=== PATIENT | male | born 1945 | race African-American/Black ===

== ENCOUNTER 2017-03-15 14:05 | Inpatient (IN) | payer MEDICARE, BC ==
[~2017-03-15] VITALS: Ht 177.8 cm; Wt 92.5 kg
[2017-03-15 15:44] VITALS: BP 148/88
[2017-03-15] MEDS ORDERED: DIPHENHYDRAMINE 25MG CAPSULE PO PRN (16:00)
[2017-03-15] MEDS ORDERED: BISACODYL 10MG SUPP PR PRN (16:00)
[2017-03-15] MEDS ORDERED: ONDANSETRON HCL 4MG TABLET PO PRN (16:00)
[2017-03-15] MEDS ORDERED: LORAZEPAM 1MG TABLET PO PRN (16:00)
[2017-03-15] MEDS ORDERED: DEXTROSE 50% WATER 50ML SYRINGE IV PRN (16:00)
[2017-03-15] MEDS ORDERED: NON FORMULARY PATIENT HOME MED EA XX SCH ×2 (16:00)
[2017-03-15 16:23] VITALS: BP 148/88
[2017-03-15] MEDS ORDERED: TRAMADOL 50MG TABLET PO PRN (16:59)
[2017-03-15] MEDS ORDERED: MAGNESIUM OXIDE 400MG TABLET PO SCH (17:00)
[2017-03-15] MEDS: INSULIN LISPRO 100 UNITS/ML SUBCUT SCH ×2 (17:00→21:00)
[2017-03-15] MEDS: BLOOD SUGAR DIAGNOSTIC STRIP TEST SCH ×2 (17:35→21:27)
[2017-03-15] MEDS: TAMSULOSIN HCL 0.4MG SR CAPSULE PO SCH (17:46)
[2017-03-15] MEDS: LANTHANUM CARBONATE 500MG CHEW TABLET PO SCH (18:32)
[2017-03-15 20:00] VITALS: BP 143/65
[2017-03-15] MEDS: LISINOPRIL 20MG TABLET PO SCH (21:00)
[2017-03-15] MEDS: NIFEDIPINE XL 60MG TAB PO SCH (21:00)
[2017-03-15] MEDS: IPRATROPIUM/ALBUTEROL 0.5-3(2.5)MG/3ML NEB HHN SCH (21:05)
[2017-03-15] MEDS: PHENYTOIN 100 MG/4 ML UDC PO SCH (21:25)
[2017-03-15] MEDS: FUROSEMIDE 80MG TABLET PO SCH (21:26)
[2017-03-15] MEDS: MIRTAZAPINE 15MG TABLET PO SCH (21:26)
[2017-03-15] MEDS: HYDRALAZINE HCL 100MG TABLET PO SCH (21:26)
[2017-03-15] MEDS: EPOETIN ALFA 4000UNITS/ML VIAL SUBCUT SCH (21:29)
[2017-03-15] MEDS: NITROGLYCERIN OINT 1GM/INCH UDPKT TD SCH (21:29)
[2017-03-16] MEDS: IPRATROPIUM/ALBUTEROL 0.5-3(2.5)MG/3ML NEB HHN SCH ×7 (00:21→20:23)
[2017-03-16 06:50] LABS: EOSINOPHILS % 4.3 % (0.0-5.0); HEMATOCRIT. 30.1 % (42.0-52.0); HEMOGLOBIN. 9.6 g/dL (14.0-18.0); LYMPHOCYTES % 15.7 % (20.0-50.0); MEAN CORPUSCULAR HEMOGLOBIN 29.3 pg (28.0-32.0); MEAN CORPUSCULAR VOLUME 91.6 fL (80.0-94.0); MEAN PLATELET VOLUME 7.3 fl (7.4-10.4); MONOCYTES % 6.2 % (2.0-8.0); NEUTROPHILS % 72.8 % (40.0-76.0); PLATELET 238 x1000/uL (130-400); RED BLOOD CELL COUNT 3.28 mill/uL (4.7-6.1); RED CELL DISTRIBUTION WIDTH 17.5 % (11.6-14.6)
[2017-03-16] MEDS: BLOOD SUGAR DIAGNOSTIC STRIP TEST SCH ×4 (06:59→21:17)
[2017-03-16] MEDS: LEVOTHYROXINE SODIUM 125MCG TABLET PO SCH (06:59)
[2017-03-16] MEDS: PHENYTOIN 100 MG/4 ML UDC PO SCH ×3 (06:59→22:19)
[2017-03-16] MEDS: INSULIN LISPRO 100 UNITS/ML SUBCUT SCH ×4 (07:04→22:29)
[2017-03-16] MEDS: HYDRALAZINE HCL 100MG TABLET PO SCH ×3 (07:04→22:19)
[2017-03-16] MEDS: NITROGLYCERIN OINT 1GM/INCH UDPKT TD SCH ×3 (07:10→22:20)
[2017-03-16 07:34] LABS: PREALBUMIN 20.6 mg/dL (20.0-40.0)
[2017-03-16 07:49] VITALS: BP 173/79
[2017-03-16] MEDS: NIFEDIPINE XL 60MG TAB PO SCH ×2 (08:48→21:04)
[2017-03-16] MEDS: FUROSEMIDE 80MG TABLET PO SCH ×2 (08:48→21:04)
[2017-03-16] MEDS: TAMSULOSIN HCL 0.4MG SR CAPSULE PO SCH ×2 (08:48→17:27)
[2017-03-16] MEDS: LANTHANUM CARBONATE 500MG CHEW TABLET PO SCH ×3 (08:48→17:27)
[2017-03-16] MEDS: VITAMIN B / W-C 1 TAB PO SCH (08:48)
[2017-03-16] MEDS: POTASSIUM CHLORIDE 20MEQ/PACKET PO SCH (08:49)
[2017-03-16] MEDS: SPIRONOLACTONE 25MG TABLET PO SCH (08:49)
[2017-03-16] MEDS: LINAGLIPTIN 5MG TABLET PO SCH (08:49)
[2017-03-16] MEDS: ISOSORBIDE MONONITRATE 30MG TABLET SR 24HR PO SCH (08:50)
[2017-03-16] MEDS ORDERED: MAGNESIUM OXIDE 400MG TABLET PO SCH (09:00)
[2017-03-16] MEDS: LISINOPRIL 20MG TABLET PO SCH ×2 (09:00→21:05)
[2017-03-16] MEDS: ACETAMINOPHEN 325MG TABLET PO PRN (10:34)
[2017-03-16] MEDS: LACTULOSE 20G/30ML UDC PO SCH ×3 (16:13→21:00)
[2017-03-16] MEDS: DOCUSATE SODIUM 100MG CAPSULE PO SCH (17:27)
[2017-03-16] MEDS ORDERED: POTASSIUM CHLORIDE 20MEQ TABLET SR PO NR (18:41)
[2017-03-16 20:00] VITALS: BP 175/79
[2017-03-16] MEDS: POLYETHYLENE GLYCOL 3350 (17GM) 1 DOSE PACK PO SCH (21:00)
[2017-03-16] MEDS: MIRTAZAPINE 15MG TABLET PO SCH (21:04)
[2017-03-17] MEDS: IPRATROPIUM/ALBUTEROL 0.5-3(2.5)MG/3ML NEB HHN SCH ×7 (00:20→21:27)
[2017-03-17] MEDS: PHENYTOIN 100 MG/4 ML UDC PO SCH ×3 (06:12→22:13)
[2017-03-17] MEDS: BLOOD SUGAR DIAGNOSTIC STRIP TEST SCH ×4 (06:12→20:48)
[2017-03-17] MEDS: HYDRALAZINE HCL 100MG TABLET PO SCH ×3 (06:12→22:24)
[2017-03-17] MEDS: NITROGLYCERIN OINT 1GM/INCH UDPKT TD SCH ×3 (06:12→22:24)
[2017-03-17] MEDS: LEVOTHYROXINE SODIUM 125MCG TABLET PO SCH (06:13)
[2017-03-17 06:22] LABS: BASOPHILS % 0.8 % (0.0-2.0); EOSINOPHILS % 5.1 % (0.0-5.0); HEMATOCRIT. 29.8 % (42.0-52.0); HEMOGLOBIN. 9.9 g/dL (14.0-18.0); LYMPHOCYTES % 16.4 % (20.0-50.0); MEAN CORPUSCULAR HEMOGLOBIN 30.5 pg (28.0-32.0); MEAN CORPUSCULAR VOLUME 91.6 fL (80.0-94.0); MEAN PLATELET VOLUME 6.9 fl (7.4-10.4); MONOCYTES % 7.8 % (2.0-8.0); NEUTROPHILS % 69.9 % (40.0-76.0); PLATELET 247 x1000/uL (130-400); RED BLOOD CELL COUNT 3.26 mill/uL (4.7-6.1); RED CELL DISTRIBUTION WIDTH 17.9 % (11.6-14.6)
[2017-03-17] MEDS: INSULIN LISPRO 100 UNITS/ML SUBCUT SCH ×4 (06:28→22:21)
[2017-03-17 07:21] LABS: CHLORIDE 97 mEq/L (98-107)
[2017-03-17 07:47] LABS: FOLIC ACID (FOLATE) SERUM 17.8 ng/mL (>5.38)
[2017-03-17 07:55] LABS: CARBON DIOXIDE 28 mEq/L (21-32); HDL CHOLESTEROL 38 mg/dL (40-59); LDL CHOLESTEROL 72 mg/dL (5-100); PHOSPHORUS 2.3 mg/dL (2.5-4.9); TOTAL IRON BINDING CAPACITY 122 ug/dL (250-450)
[2017-03-17 08:00] VITALS: BP 187/129
[2017-03-17] MEDS: LACTULOSE 20G/30ML UDC PO SCH ×2 (09:00→12:45)
[2017-03-17 09:30] VITALS: BP_SYST 183; BP_SYST 193; BP_DIAS 77; BP_DIAS 86
[2017-03-17] MEDS ORDERED: POTASSIUM CHLORIDE 20MEQ/PACKET PO NR (09:35)
[2017-03-17] MEDS: DOCUSATE SODIUM 100MG CAPSULE PO SCH ×2 (09:55→18:27)
[2017-03-17] MEDS: MAGNESIUM OXIDE 400MG TABLET PO SCH ×2 (09:55→18:27)
[2017-03-17] MEDS: TAMSULOSIN HCL 0.4MG SR CAPSULE PO SCH ×2 (09:55→18:27)
[2017-03-17] MEDS: LISINOPRIL 20MG TABLET PO SCH ×2 (09:55→20:47)
[2017-03-17] MEDS: LINAGLIPTIN 5MG TABLET PO SCH (09:55)
[2017-03-17] MEDS: VITAMIN B / W-C 1 TAB PO SCH (09:56)
[2017-03-17] MEDS: NIFEDIPINE XL 60MG TAB PO SCH ×2 (09:56→20:47)
[2017-03-17] MEDS: SPIRONOLACTONE 25MG TABLET PO SCH (09:56)
[2017-03-17] MEDS: FUROSEMIDE 80MG TABLET PO SCH ×2 (09:56→20:48)
[2017-03-17] MEDS: POTASSIUM CHLORIDE 20MEQ/PACKET PO SCH (09:56)
[2017-03-17] MEDS: ISOSORBIDE MONONITRATE 30MG TABLET SR 24HR PO SCH (09:56)
[2017-03-17] MEDS: ACETAMINOPHEN 325MG TABLET PO PRN (09:59)
[2017-03-17 11:10] LABS: PROSTRATE SPECIFIC AG TOTAL 0.42 ng/mL (0.0-4.0)
[2017-03-17 12:30] VITALS: BP 148/70
[2017-03-17 20:00] VITALS: BP 202/83
[2017-03-17] MEDS: EPOETIN ALFA 4000UNITS/ML VIAL SUBCUT SCH (20:47)
[2017-03-17] MEDS: POLYETHYLENE GLYCOL 3350 (17GM) 1 DOSE PACK PO SCH (20:48)
[2017-03-17] MEDS: MIRTAZAPINE 15MG TABLET PO SCH (20:48)
[2017-03-18] MEDS: IPRATROPIUM/ALBUTEROL 0.5-3(2.5)MG/3ML NEB HHN SCH ×6 (00:32→20:00)
[2017-03-18] MEDS: BLOOD SUGAR DIAGNOSTIC STRIP TEST SCH ×4 (06:38→20:51)
[2017-03-18] MEDS: LEVOTHYROXINE SODIUM 125MCG TABLET PO SCH (06:38)
[2017-03-18] MEDS: PHENYTOIN 100 MG/4 ML UDC PO SCH (06:38)
[2017-03-18] MEDS: NITROGLYCERIN OINT 1GM/INCH UDPKT TD SCH ×3 (06:39→20:53)
[2017-03-18] MEDS: HYDRALAZINE HCL 100MG TABLET PO SCH ×3 (06:39→21:53)
[2017-03-18] MEDS: INSULIN LISPRO 100 UNITS/ML SUBCUT SCH ×4 (06:39→20:57)
[2017-03-18 08:00] VITALS: BP 189/78
[2017-03-18] MEDS: SPIRONOLACTONE 25MG TABLET PO SCH (09:52)
[2017-03-18] MEDS: TAMSULOSIN HCL 0.4MG SR CAPSULE PO SCH ×2 (09:52→17:33)
[2017-03-18] MEDS: FUROSEMIDE 80MG TABLET PO SCH ×2 (09:52→20:51)
[2017-03-18] MEDS: LINAGLIPTIN 5MG TABLET PO SCH (09:52)
[2017-03-18] MEDS: VITAMIN B / W-C 1 TAB PO SCH (09:52)
[2017-03-18] MEDS: DOCUSATE SODIUM 100MG CAPSULE PO SCH ×2 (09:53→17:00)
[2017-03-18] MEDS: MAGNESIUM OXIDE 400MG TABLET PO SCH ×2 (09:53→17:33)
[2017-03-18] MEDS: POTASSIUM CHLORIDE 20MEQ/PACKET PO SCH (09:53)
[2017-03-18] MEDS: NIFEDIPINE XL 60MG TAB PO SCH ×2 (09:53→20:50)
[2017-03-18] MEDS: ISOSORBIDE MONONITRATE 30MG TABLET SR 24HR PO SCH (09:53)
[2017-03-18] MEDS: LISINOPRIL 20MG TABLET PO SCH ×2 (09:53→20:51)
[2017-03-18] MEDS: ACETAMINOPHEN 325MG TABLET PO PRN ×2 (09:54→23:21)
[2017-03-18] MEDS ORDERED: LEVETIRACETAM 250MG TABLET PO SCH (10:30)
[2017-03-18 11:30] LABS: AMMONIA 38 uMol/L (<32)
[2017-03-18 11:47] LABS: T4 FREE 1.38 ng/dL (0.76-1.46)
[2017-03-18 12:00] VITALS: BP 103/67
[2017-03-18 20:00] VITALS: BP 174/88
[2017-03-18] MEDS: LEVETIRACETAM 250MG TABLET PO SCH (20:49)
[2017-03-18] MEDS: MIRTAZAPINE 15MG TABLET PO SCH (20:50)
[2017-03-18] MEDS: POLYETHYLENE GLYCOL 3350 (17GM) 1 DOSE PACK PO SCH (20:51)
[2017-03-19] MEDS: IPRATROPIUM/ALBUTEROL 0.5-3(2.5)MG/3ML NEB HHN SCH ×5 (00:06→19:42)
[2017-03-19] MEDS: HYDRALAZINE HCL 100MG TABLET PO SCH ×3 (05:52→22:00)
[2017-03-19] MEDS: LEVOTHYROXINE SODIUM 125MCG TABLET PO SCH (05:52)
[2017-03-19] MEDS: NITROGLYCERIN OINT 1GM/INCH UDPKT TD SCH ×3 (05:53→22:22)
[2017-03-19] MEDS: BLOOD SUGAR DIAGNOSTIC STRIP TEST SCH ×4 (05:53→21:00)
[2017-03-19] MEDS: INSULIN LISPRO 100 UNITS/ML SUBCUT SCH ×5 (06:26→22:29)
[2017-03-19 08:00] VITALS: BP 166/77
[2017-03-19] MEDS: POTASSIUM CHLORIDE 20MEQ/PACKET PO SCH (09:22)
[2017-03-19] MEDS: VITAMIN B / W-C 1 TAB PO SCH (09:22)
[2017-03-19] MEDS: NIFEDIPINE XL 60MG TAB PO SCH ×2 (09:23→21:00)
[2017-03-19] MEDS: FUROSEMIDE 80MG TABLET PO SCH ×2 (09:23→22:21)
[2017-03-19] MEDS: TAMSULOSIN HCL 0.4MG SR CAPSULE PO SCH ×2 (09:23→18:03)
[2017-03-19] MEDS: DOCUSATE SODIUM 100MG CAPSULE PO SCH ×2 (09:23→18:02)
[2017-03-19] MEDS: ISOSORBIDE MONONITRATE 30MG TABLET SR 24HR PO SCH (09:23)
[2017-03-19] MEDS: LEVETIRACETAM 250MG TABLET PO SCH ×2 (09:23→22:21)
[2017-03-19] MEDS: LISINOPRIL 20MG TABLET PO SCH ×2 (09:24→21:00)
[2017-03-19] MEDS: SPIRONOLACTONE 25MG TABLET PO SCH (09:24)
[2017-03-19] MEDS: LINAGLIPTIN 5MG TABLET PO SCH (09:24)
[2017-03-19] MEDS: MAGNESIUM OXIDE 400MG TABLET PO SCH ×2 (09:24→18:02)
[2017-03-19 09:25] LABS: BASOPHILS % 1.3 % (0.0-2.0); EOSINOPHILS % 5.4 % (0.0-5.0); HEMATOCRIT. 29.2 % (42.0-52.0); HEMOGLOBIN. 9.5 g/dL (14.0-18.0); LYMPHOCYTES % 17.2 % (20.0-50.0); MEAN CORPUSCULAR HEMOGLOBIN 29.6 pg (28.0-32.0); MONOCYTES % 8.3 % (2.0-8.0); NEUTROPHILS % 67.8 % (40.0-76.0); PLATELET 217 x1000/uL (130-400); RED BLOOD CELL COUNT 3.21 mill/uL (4.7-6.1); RED CELL DISTRIBUTION WIDTH 17.7 % (11.6-14.6)
[2017-03-19] MEDS: ACETAMINOPHEN 500MG TABLET PO SCH ×3 (13:39→23:46)
[2017-03-19 20:00] VITALS: BP_SYST 108; BP_SYST 109; BP_DIAS 66
[2017-03-19] MEDS: POLYETHYLENE GLYCOL 3350 (17GM) 1 DOSE PACK PO SCH (21:00)
[2017-03-19] MEDS: MIRTAZAPINE 15MG TABLET PO SCH (22:21)
[2017-03-19] MEDS: ACETAMINOPHEN 325MG TABLET PO PRN (23:28)
[2017-03-20] MEDS: IPRATROPIUM/ALBUTEROL 0.5-3(2.5)MG/3ML NEB HHN SCH ×6 (00:14→20:18)
[2017-03-20] MEDS: ACETAMINOPHEN 500MG TABLET PO SCH ×4 (06:00→22:57)
[2017-03-20] MEDS: HYDRALAZINE HCL 100MG TABLET PO SCH ×3 (06:45→22:58)
[2017-03-20] MEDS: NITROGLYCERIN OINT 1GM/INCH UDPKT TD SCH ×3 (06:46→23:00)
[2017-03-20] MEDS: BLOOD SUGAR DIAGNOSTIC STRIP TEST SCH ×4 (06:46→21:00)
[2017-03-20] MEDS: LEVOTHYROXINE SODIUM 125MCG TABLET PO SCH (06:52)
[2017-03-20] MEDS: INSULIN LISPRO 100 UNITS/ML SUBCUT SCH ×2 (06:56→13:00)
[2017-03-20 08:00] VITALS: BP 184/75
[2017-03-20] MEDS: POTASSIUM CHLORIDE 20MEQ/PACKET PO SCH (09:21)
[2017-03-20] MEDS: DOCUSATE SODIUM 100MG CAPSULE PO SCH ×2 (09:21→18:06)
[2017-03-20] MEDS: NIFEDIPINE XL 60MG TAB PO SCH ×2 (09:22→22:57)
[2017-03-20] MEDS: LINAGLIPTIN 5MG TABLET PO SCH (09:22)
[2017-03-20] MEDS: SPIRONOLACTONE 25MG TABLET PO SCH (09:22)
[2017-03-20] MEDS: LISINOPRIL 20MG TABLET PO SCH ×2 (09:22→21:00)
[2017-03-20] MEDS: ISOSORBIDE MONONITRATE 30MG TABLET SR 24HR PO SCH (09:23)
[2017-03-20] MEDS: LEVETIRACETAM 250MG TABLET PO SCH ×2 (09:23→22:58)
[2017-03-20] MEDS: MAGNESIUM OXIDE 400MG TABLET PO SCH ×2 (09:23→18:05)
[2017-03-20] MEDS: TAMSULOSIN HCL 0.4MG SR CAPSULE PO SCH ×2 (09:23→18:05)
[2017-03-20] MEDS: FUROSEMIDE 80MG TABLET PO SCH ×2 (09:23→22:59)
[2017-03-20] MEDS: VITAMIN B / W-C 1 TAB PO SCH (09:23)
[2017-03-20] MEDS ORDERED: GLUCAGON,HUMAN RECOMBINANT 1MG/VIAL IM SCH (10:15)
[2017-03-20] MEDS: ASCORBIC ACID 250 MG TABLET PO SCH (18:06)
[2017-03-20 20:00] VITALS: BP_SYST 120; BP_SYST 136; BP_DIAS 65; BP_DIAS 67
[2017-03-20] MEDS: POLYETHYLENE GLYCOL 3350 (17GM) 1 DOSE PACK PO SCH (21:00)
[2017-03-20] MEDS: MIRTAZAPINE 15MG TABLET PO SCH (22:58)
[2017-03-20] MEDS: EPOETIN ALFA 4000UNITS/ML VIAL SUBCUT SCH (22:59)
[2017-03-21] MEDS: IPRATROPIUM/ALBUTEROL 0.5-3(2.5)MG/3ML NEB HHN SCH ×6 (00:22→21:35)
[2017-03-21] MEDS: LEVOTHYROXINE SODIUM 125MCG TABLET PO SCH (05:59)
[2017-03-21] MEDS: ACETAMINOPHEN 500MG TABLET PO SCH ×3 (06:00→17:08)
[2017-03-21] MEDS: HYDRALAZINE HCL 100MG TABLET PO SCH ×3 (06:00→22:00)
[2017-03-21] MEDS: NITROGLYCERIN OINT 1GM/INCH UDPKT TD SCH ×3 (06:00→23:08)
[2017-03-21] MEDS: BLOOD SUGAR DIAGNOSTIC STRIP TEST SCH ×5 (06:00→21:42)
[2017-03-21 08:00] VITALS: BP 166/70
[2017-03-21] MEDS ORDERED: ZINC SULFATE 220 MG ( 50 ) CAPSULE PO SCH (09:00)
[2017-03-21 09:06] LABS: 25-HYDROXY VITAMIN D3 24 ng/mL (.)
[2017-03-21] MEDS: POTASSIUM CHLORIDE 20MEQ/PACKET PO SCH (10:05)
[2017-03-21] MEDS: MAGNESIUM OXIDE 400MG TABLET PO SCH ×2 (10:06→17:08)
[2017-03-21] MEDS: ZINC SULFATE 220 MG ( 50 ) CAPSULE PO SCH (10:06)
[2017-03-21] MEDS: FOLIC ACID/VITAMIN B COMP W-C TABLET PO SCH (10:06)
[2017-03-21] MEDS: FUROSEMIDE 80MG TABLET PO SCH ×2 (10:06→21:41)
[2017-03-21] MEDS: TAMSULOSIN HCL 0.4MG SR CAPSULE PO SCH ×2 (10:07→17:08)
[2017-03-21] MEDS: VITAMIN B / W-C 1 TAB PO SCH (10:07)
[2017-03-21] MEDS: LEVETIRACETAM 250MG TABLET PO SCH ×2 (10:07→21:40)
[2017-03-21] MEDS: ASCORBIC ACID 250 MG TABLET PO SCH ×2 (10:07→17:08)
[2017-03-21] MEDS: NIFEDIPINE XL 60MG TAB PO SCH ×2 (10:08→21:41)
[2017-03-21] MEDS: SPIRONOLACTONE 25MG TABLET PO SCH (10:08)
[2017-03-21] MEDS: LISINOPRIL 20MG TABLET PO SCH ×2 (10:08→21:41)
[2017-03-21] MEDS: DOCUSATE SODIUM 100MG CAPSULE PO SCH ×2 (10:09→17:08)
[2017-03-21] MEDS: ISOSORBIDE MONONITRATE 30MG TABLET SR 24HR PO SCH (10:09)
[2017-03-21] MEDS ORDERED: ERGOCALCIFEROL 50000UNITS CAPSULE PO SCH (15:00)
[2017-03-21 20:00] VITALS: BP 155/76
[2017-03-21] MEDS: POLYETHYLENE GLYCOL 3350 (17GM) 1 DOSE PACK PO SCH (21:00)
[2017-03-21] MEDS: MIRTAZAPINE 15MG TABLET PO SCH (21:41)
[2017-03-22] MEDS: IPRATROPIUM/ALBUTEROL 0.5-3(2.5)MG/3ML NEB HHN SCH ×6 (01:16→19:57)
[2017-03-22] MEDS: HYDRALAZINE HCL 100MG TABLET PO SCH ×3 (06:28→23:29)
[2017-03-22] MEDS: BLOOD SUGAR DIAGNOSTIC STRIP TEST SCH ×4 (06:28→21:00)
[2017-03-22] MEDS: NITROGLYCERIN OINT 1GM/INCH UDPKT TD SCH ×3 (06:28→23:28)
[2017-03-22] MEDS: LEVOTHYROXINE SODIUM 125MCG TABLET PO SCH (06:28)
[2017-03-22] MEDS: ACETAMINOPHEN 500MG TABLET PO SCH ×5 (06:28→23:28)
[2017-03-22 08:00] VITALS: BP 141/70
[2017-03-22] MEDS: TAMSULOSIN HCL 0.4MG SR CAPSULE PO SCH ×2 (09:57→17:18)
[2017-03-22] MEDS: LISINOPRIL 20MG TABLET PO SCH ×2 (09:57→22:27)
[2017-03-22] MEDS: FUROSEMIDE 80MG TABLET PO SCH ×2 (09:57→22:27)
[2017-03-22] MEDS: DOCUSATE SODIUM 100MG CAPSULE PO SCH ×2 (09:57→17:18)
[2017-03-22] MEDS: FOLIC ACID/VITAMIN B COMP W-C TABLET PO SCH (09:57)
[2017-03-22] MEDS: LEVETIRACETAM 250MG TABLET PO SCH ×2 (09:57→22:27)
[2017-03-22] MEDS: MAGNESIUM OXIDE 400MG TABLET PO SCH ×2 (09:57→17:18)
[2017-03-22] MEDS: ZINC SULFATE 220 MG ( 50 ) CAPSULE PO SCH (09:57)
[2017-03-22] MEDS: VITAMIN B / W-C 1 TAB PO SCH (09:57)
[2017-03-22] MEDS: SPIRONOLACTONE 25MG TABLET PO SCH (09:57)
[2017-03-22] MEDS: ASCORBIC ACID 250 MG TABLET PO SCH ×2 (09:57→17:18)
[2017-03-22] MEDS: NIFEDIPINE XL 60MG TAB PO SCH ×2 (09:58→23:29)
[2017-03-22] MEDS: ISOSORBIDE MONONITRATE 30MG TABLET SR 24HR PO SCH (09:58)
[2017-03-22] MEDS: POTASSIUM CHLORIDE 20MEQ/PACKET PO SCH (09:58)
[2017-03-22 12:07] LABS: BASOPHILS % 0.9 % (0.0-2.0); EOSINOPHILS % 3.9 % (0.0-5.0); HEMATOCRIT. 31.5 % (42.0-52.0); HEMOGLOBIN. 10.2 g/dL (14.0-18.0); LYMPHOCYTES % 15.5 % (20.0-50.0); MEAN CORPUSCULAR HEMOGLOBIN 30.1 pg (28.0-32.0); MEAN CORPUSCULAR VOLUME 92.6 fL (80.0-94.0); MEAN PLATELET VOLUME 7.2 fl (7.4-10.4); MONOCYTES % 6.8 % (2.0-8.0); NEUTROPHILS % 72.9 % (40.0-76.0); PLATELET 255 x1000/uL (130-400); RED CELL DISTRIBUTION WIDTH 18.4 % (11.6-14.6)
[2017-03-22 12:20] VITALS: BP 106/58
[2017-03-22] MEDS ORDERED: POTASSIUM CHLORIDE 20MEQ/PACKET PO NR (19:00)
[2017-03-22 20:00] VITALS: BP 124/67
[2017-03-22] MEDS: POLYETHYLENE GLYCOL 3350 (17GM) 1 DOSE PACK PO SCH (21:00)
[2017-03-22] MEDS: MIRTAZAPINE 15MG TABLET PO SCH (22:27)
[2017-03-23] MEDS: IPRATROPIUM/ALBUTEROL 0.5-3(2.5)MG/3ML NEB HHN SCH ×5 (00:13→20:55)
[2017-03-23] MEDS: LEVOTHYROXINE SODIUM 125MCG TABLET PO SCH (06:26)
[2017-03-23] MEDS: ACETAMINOPHEN 500MG TABLET PO SCH ×4 (06:26→22:37)
[2017-03-23] MEDS: NITROGLYCERIN OINT 1GM/INCH UDPKT TD SCH ×3 (06:27→22:36)
[2017-03-23] MEDS: BLOOD SUGAR DIAGNOSTIC STRIP TEST SCH ×4 (06:27→20:55)
[2017-03-23] MEDS: HYDRALAZINE HCL 100MG TABLET PO SCH ×3 (06:27→22:37)
[2017-03-23 08:00] VITALS: BP 148/70
[2017-03-23] MEDS: POTASSIUM CHLORIDE 20MEQ/PACKET PO SCH (09:23)
[2017-03-23] MEDS: LISINOPRIL 20MG TABLET PO SCH ×2 (09:24→22:37)
[2017-03-23] MEDS: LEVETIRACETAM 250MG TABLET PO SCH ×2 (09:24→22:37)
[2017-03-23] MEDS: FOLIC ACID/VITAMIN B COMP W-C TABLET PO SCH (09:24)
[2017-03-23] MEDS: VITAMIN B / W-C 1 TAB PO SCH (09:24)
[2017-03-23] MEDS: DOCUSATE SODIUM 100MG CAPSULE PO SCH ×2 (09:24→16:52)
[2017-03-23] MEDS: ZINC SULFATE 220 MG ( 50 ) CAPSULE PO SCH (09:25)
[2017-03-23] MEDS: SPIRONOLACTONE 25MG TABLET PO SCH (09:25)
[2017-03-23] MEDS: NIFEDIPINE XL 60MG TAB PO SCH ×3 (09:25→22:59)
[2017-03-23] MEDS: ASCORBIC ACID 250 MG TABLET PO SCH ×2 (09:25→16:52)
[2017-03-23] MEDS: MAGNESIUM OXIDE 400MG TABLET PO SCH ×2 (09:25→16:52)
[2017-03-23] MEDS: TAMSULOSIN HCL 0.4MG SR CAPSULE PO SCH ×2 (09:25→16:52)
[2017-03-23] MEDS: FUROSEMIDE 80MG TABLET PO SCH ×2 (09:26→22:37)
[2017-03-23] MEDS: ISOSORBIDE MONONITRATE 30MG TABLET SR 24HR PO SCH (09:26)
[2017-03-23 20:01] VITALS: BP 133/79
[2017-03-23] MEDS: POLYETHYLENE GLYCOL 3350 (17GM) 1 DOSE PACK PO SCH (22:36)
[2017-03-23] MEDS: MIRTAZAPINE 15MG TABLET PO SCH (22:37)
[2017-03-24] MEDS: IPRATROPIUM/ALBUTEROL 0.5-3(2.5)MG/3ML NEB HHN SCH ×6 (00:47→20:50)
[2017-03-24] MEDS: BLOOD SUGAR DIAGNOSTIC STRIP TEST SCH ×4 (05:52→21:17)
[2017-03-24] MEDS: LEVOTHYROXINE SODIUM 125MCG TABLET PO SCH (06:52)
[2017-03-24] MEDS: ACETAMINOPHEN 500MG TABLET PO SCH ×4 (06:53→23:20)
[2017-03-24] MEDS: HYDRALAZINE HCL 100MG TABLET PO SCH ×3 (06:53→21:17)
[2017-03-24] MEDS: CLONIDINE 0.1MG TABLET PO PRN (06:58)
[2017-03-24] MEDS: NITROGLYCERIN OINT 1GM/INCH UDPKT TD SCH ×3 (07:03→21:17)
[2017-03-24 07:28] VITALS: BP 186/86
[2017-03-24 08:00] VITALS: BP 163/72
[2017-03-24] MEDS: DOCUSATE SODIUM 100MG CAPSULE PO SCH ×2 (09:00→17:00)
[2017-03-24] MEDS: SPIRONOLACTONE 25MG TABLET PO SCH (09:18)
[2017-03-24] MEDS: NIFEDIPINE XL 60MG TAB PO SCH ×2 (09:18→21:17)
[2017-03-24] MEDS: ISOSORBIDE MONONITRATE 30MG TABLET SR 24HR PO SCH (09:19)
[2017-03-24] MEDS: ASCORBIC ACID 250 MG TABLET PO SCH ×2 (09:19→17:27)
[2017-03-24] MEDS: VITAMIN B / W-C 1 TAB PO SCH (09:19)
[2017-03-24] MEDS: LISINOPRIL 20MG TABLET PO SCH ×2 (09:19→21:17)
[2017-03-24] MEDS: ZINC SULFATE 220 MG ( 50 ) CAPSULE PO SCH (09:19)
[2017-03-24] MEDS: LEVETIRACETAM 250MG TABLET PO SCH ×2 (09:20→21:16)
[2017-03-24] MEDS: FOLIC ACID/VITAMIN B COMP W-C TABLET PO SCH (09:20)
[2017-03-24] MEDS: MAGNESIUM OXIDE 400MG TABLET PO SCH ×2 (09:20→17:26)
[2017-03-24] MEDS: FUROSEMIDE 80MG TABLET PO SCH ×2 (09:20→21:16)
[2017-03-24] MEDS: TAMSULOSIN HCL 0.4MG SR CAPSULE PO SCH ×2 (09:20→17:27)
[2017-03-24] MEDS: POTASSIUM CHLORIDE 20MEQ/PACKET PO SCH (09:20)
[2017-03-24 20:00] VITALS: BP 132/81
[2017-03-24] MEDS: POLYETHYLENE GLYCOL 3350 (17GM) 1 DOSE PACK PO SCH (21:00)
[2017-03-24] MEDS: MIRTAZAPINE 15MG TABLET PO SCH (21:16)
[2017-03-25] MEDS: IPRATROPIUM/ALBUTEROL 0.5-3(2.5)MG/3ML NEB HHN SCH ×6 (04:00→20:54)
[2017-03-25] MEDS: NITROGLYCERIN OINT 1GM/INCH UDPKT TD SCH ×3 (05:23→21:33)
[2017-03-25] MEDS: ACETAMINOPHEN 500MG TABLET PO SCH ×4 (05:24→23:05)
[2017-03-25] MEDS: HYDRALAZINE HCL 100MG TABLET PO SCH ×3 (05:24→21:09)
[2017-03-25] MEDS: BLOOD SUGAR DIAGNOSTIC STRIP TEST SCH ×4 (05:32→20:47)
[2017-03-25] MEDS: LEVOTHYROXINE SODIUM 125MCG TABLET PO SCH (06:13)
[2017-03-25 06:40] VITALS: BP 155/70
[2017-03-25 07:59] VITALS: BP 167/76
[2017-03-25] MEDS: DOCUSATE SODIUM 100MG CAPSULE PO SCH ×2 (09:00→17:00)
[2017-03-25] MEDS: POTASSIUM CHLORIDE 20MEQ/PACKET PO SCH (09:29)
[2017-03-25] MEDS: MAGNESIUM OXIDE 400MG TABLET PO SCH ×2 (09:29→17:39)
[2017-03-25] MEDS: FOLIC ACID/VITAMIN B COMP W-C TABLET PO SCH (09:30)
[2017-03-25] MEDS: VITAMIN B / W-C 1 TAB PO SCH (09:30)
[2017-03-25] MEDS: NIFEDIPINE XL 60MG TAB PO SCH ×2 (09:30→20:38)
[2017-03-25] MEDS: ASCORBIC ACID 250 MG TABLET PO SCH ×2 (09:30→17:41)
[2017-03-25] MEDS: TAMSULOSIN HCL 0.4MG SR CAPSULE PO SCH ×2 (09:30→17:39)
[2017-03-25] MEDS: LEVETIRACETAM 250MG TABLET PO SCH ×2 (09:31→20:37)
[2017-03-25] MEDS: SPIRONOLACTONE 25MG TABLET PO SCH (09:31)
[2017-03-25] MEDS: FUROSEMIDE 80MG TABLET PO SCH ×2 (09:31→20:37)
[2017-03-25] MEDS: ISOSORBIDE MONONITRATE 30MG TABLET SR 24HR PO SCH (09:31)
[2017-03-25] MEDS: ZINC SULFATE 220 MG ( 50 ) CAPSULE PO SCH (09:31)
[2017-03-25] MEDS: LISINOPRIL 20MG TABLET PO SCH ×2 (09:32→21:00)
[2017-03-25 17:25] LABS: EOSINOPHILS % 5.2 % (0.0-5.0); LYMPHOCYTES % 18.5 % (20.0-50.0); MEAN CORPUSCULAR HEMOGLOBIN 30.4 pg (28.0-32.0); MEAN CORPUSCULAR VOLUME 91.1 fL (80.0-94.0); MONOCYTES % 6.8 % (2.0-8.0); NEUTROPHILS % 68.5 % (40.0-76.0); PLATELET 237 x1000/uL (130-400); RED BLOOD CELL COUNT 3.29 mill/uL (4.7-6.1); RED CELL DISTRIBUTION WIDTH 18.7 % (11.6-14.6)
[2017-03-25 20:00] VITALS: BP 169/59
[2017-03-25] MEDS: MIRTAZAPINE 15MG TABLET PO SCH (20:37)
[2017-03-25] MEDS: POLYETHYLENE GLYCOL 3350 (17GM) 1 DOSE PACK PO SCH (20:39)
[2017-03-25] MEDS: CLONIDINE 0.1MG TABLET PO PRN (23:03)
[2017-03-26 00:14] VITALS: BP 174/74
[2017-03-26] MEDS: IPRATROPIUM/ALBUTEROL 0.5-3(2.5)MG/3ML NEB HHN SCH (00:45)
[2017-03-26 01:20] VITALS: BP 176/68
[2017-03-26] MEDS ORDERED: EPINEPHRINE 0.1MG/ML (1:10,000) 10ML SYR ONE (03:00)
[2017-03-26] MEDS ORDERED: SODIUM BICARBONATE 7.5% 0.9 MEQ/ML 50ML SYR IV ONE (03:00)
== END 2017-03-26 04:33 | disposition expired | DRG 91 ==
PROVIDERS: ADMIT Physical Medicine & Rehabilitation Spinal Cord Injury Medicine; ATTEND Internal Medicine Nephrology
PROC: 3E1M39Z Irrigation of Peritoneal Cavity using Dialysate, Percutaneous Approach (ICD-10-PCS; 2017-03-16)
PROC: 5A12012 Performance of Cardiac Output, Single, Manual (ICD-10-PCS; principal; 2017-03-26)
PROC: 5A1935Z Respiratory Ventilation, Less than 24 Consecutive Hours (ICD-10-PCS; 2017-03-26)
PROC: 0BH17EZ Insertion of Endotracheal Airway into Trachea, Via Natural or Artificial Opening (ICD-10-PCS; 2017-03-26)
DX: G92 Toxic encephalopathy (principal); N18.6 End stage renal disease; L89.152 Pressure ulcer of sacral region, stage 2; J18.9 Pneumonia, unspecified organism; I82.401 Acute embolism and thrombosis of unspecified deep veins of right lower extremity; E11.22 Type 2 diabetes mellitus with diabetic chronic kidney disease; I12.0 Hypertensive chronic kidney disease with stage 5 chronic kidney disease or end stage renal disease; I48.2 Chronic atrial fibrillation; R53.2 Functional quadriplegia; N13.8 Other obstructive and reflux uropathy; I46.9 Cardiac arrest, cause unspecified; E11.649 Type 2 diabetes mellitus with hypoglycemia without coma; R13.10 Dysphagia, unspecified; E03.9 Hypothyroidism, unspecified; N40.0 Benign prostatic hyperplasia without lower urinary tract symptoms; N50.89 Other specified disorders of the male genital organs; N43.3 Hydrocele, unspecified; N40.1 Benign prostatic hyperplasia with lower urinary tract symptoms; E60 Dietary zinc deficiency; M24.562 Contracture, left knee; M24.561 Contracture, right knee; I70.0 Atherosclerosis of aorta; F03.90 Unspecified dementia, unspecified severity, without behavioral disturbance, psychotic disturbance, mood disturbance, and anxiety; E55.9 Vitamin D deficiency, unspecified; D63.8 Anemia in other chronic diseases classified elsewhere; R47.1 Dysarthria and anarthria; Z88.8 Allergy status to other drugs, medicaments and biological substances; Z99.2 Dependence on renal dialysis; I69.320 Aphasia following cerebral infarction; Z86.11 Personal history of tuberculosis; Z86.718 Personal history of other venous thrombosis and embolism; Z95.0 Presence of cardiac pacemaker; Z86.61 Personal history of infections of the central nervous system; Z88.6 Allergy status to analgesic agent; I69.391 Dysphagia following cerebral infarction
CPT/HCPCS: 36415; 70450; 74000; 80048; 80053; 80061; 80185; 82140; 82270; 82306; 82533; 82607; 82728; 82746; 82962; 83036; 83540; 83550; 83735; 84100; 84134; 84153; 84439; 84443; 84481; 84630; 85025; 87070; 87205; 89050; 92523; 92610; 93970; 94640; 94664; 97110; 97112; 97163; 97167; 97530; 97535; 97542; A6261; J0171; J0885; J1610; J1815; J3490; J7620